=== PATIENT | female | born 1990 | race Hispanic/Latino ===

== ENCOUNTER 2018-06-04 23:08 | Inpatient (IN) | payer MEDICAID, OTHER, SELFPAY ==
[~2018-06-04 23:08] MED LIST: Bupivacaine HCl 0.25%/Epi 0.0005/PF 10 ML VIAL FS ONE
[2018-06-04] MEDS ORDERED: Ondansetron PF 4 MG/2 ML Vial IVP PRN (23:17)
[2018-06-04] MEDS ORDERED: Lidocaine 1% (PF) 30 ML VIAL SC PRN (23:17)
[2018-06-04] MEDS ORDERED: Ibuprofen 800 MG TAB PO PRN (23:17)
[2018-06-04] MEDS ORDERED: Butorphanol Tartrate 1 MG/ML VIAL SLOW IVP PRN (23:17)
[2018-06-04] MEDS ORDERED: HYDROcodone/Acetaminophen 5/325 mg Tablet PO PRN ×2 (23:17)
[2018-06-04] MEDS ORDERED: Promethazine HCl 25 MG/ML VIAL IM PRN (23:17)
[2018-06-04 23:18] VITALS: BMI 28.5
--- NOTE | 2018-06-04 23:22 | PDOC.EVN ---
Event Note - Event Note Event Note: OBGYN Faculty Direct admission to Dr Lopez for PPROM. Ampicillin requested. Dr lopez aware Courtsey orders placed
[2018-06-04] MEDS ORDERED: Ampicillin 2 GM in Sodium Chloride 0.9% 100 ML IVPB SCH (23:30)
[2018-06-04] MEDS: Lactated Ringer's 1,000 ML IV SCH (23:43)
[2018-06-04 23:54] LABS: Hemoglobin 11.9 g/dL (12.0-16.0); Mean Corpuscular HGB CONC 33.8 g/dL (32.0-36.0); Mean Corpuscular Volume 82.9 fL (78.0-98.0); Mean Platelet Volume 8.8 fL (7.4-10.4); Platelet Count 197 thou/uL (130-400); RBC Distribution Width 12.5 % (11.5-14.5); Red Blood Cell (RBC) Count 4.24 mill/uL (4.20-5.40)
[2018-06-05] MEDS ORDERED: Fentanyl 4 mcg/Bup 0.1% Cadd 100 ML ONE
[2018-06-05] MEDS ORDERED: Lidocaine 1.5% w/Epi 1:200K 30 ML VIAL (Epid Use) ONE (00:09)
[2018-06-05 00:34] LABS: Syphilis Antibody Nonreactive (Nonreactive); Syphilis Antibody Index 0.02 S/CO (<1.00 Non-Reactive)
[2018-06-05 00:45] LABS: HBSAg Index 0.12 S/CO (0-0.99); HIV (1/2) Antibody/Antigen Non-Reactive (NonReactive); HIV 1/2 INDEX 0.09 S/CO (<1.00); Hep B Surf Ag Non-Reactive S/CO (NonReactive)
[2018-06-05] MEDS ORDERED: Promethazine HCl 25 MG/ML VIAL IM PRN (00:46)
[2018-06-05] MEDS ORDERED: Eucerin (Mineral Oil/Petrolatum,White) 30 gm Jar TOP PRN (00:46)
[2018-06-05] MEDS ORDERED: Lactated Ringer's 500 ML IV PRN (00:46)
[2018-06-05] MEDS ORDERED: diphenhydrAMINE 50 MG/ML VIAL IVP PRN (00:46)
[2018-06-05] MEDS ORDERED: Acetaminophen 325 MG TAB PO PRN (00:46)
[2018-06-05] MEDS ORDERED: Naloxone HCl 0.4 mg/ml Vial IVP PRN ×2 (00:46)
[2018-06-05] MEDS ORDERED: Ondansetron PF 4 MG/2 ML Vial IVP PRN ×2 (00:46→07:39)
[2018-06-05] MEDS ORDERED: ePHEDrine/0.9% NaCl/PF SYRINGE 50 mg/10 ml SLOW IVP PRN (00:46)
[2018-06-05] MEDS ORDERED: Communication Order-Pharmacy FS SCH (01:00)
[2018-06-05] MEDS ORDERED: Fentanyl 4 mcg/Bupivacaine 0.1% Cassette 100 ML EPIDURAL SCH (01:00)
[2018-06-05] MEDS: Lactated Ringer's 1,000 ML IV SCH (01:30)
[2018-06-05] MEDS ORDERED: Lidocaine 1% (PF) 30 ML VIAL ONE (04:09)
[2018-06-05] MEDS ORDERED: NS / Oxytocin 40 units/1000ml 1,000 ML ONE (04:09)
[2018-06-05] MEDS: NS / Oxytocin 40 units/1000ml 1,000 ML IV PRN ×2 (06:10→07:42)
[2018-06-05] MEDS ORDERED: HYDROcodone/Acetaminophen 5/325 mg Tablet PO PRN (07:39)
[2018-06-05] MEDS ORDERED: Milk Of Magnesia 30 ML UDCUP PO PRN (07:39)
[2018-06-05] MEDS ORDERED: diphenhydrAMINE 25 MG CAP PO PRN (07:39)
[2018-06-05] MEDS ORDERED: Lanolin Ointment 7 GM TUBE TOP PRN (07:39)
[2018-06-05] MEDS ORDERED: NS / Oxytocin 40 units/1000ml 1,000 ML IV SCH (07:39)
[2018-06-05] MEDS ORDERED: Bisacodyl 10 MG SUPP PR PRN (07:39)
[2018-06-05] MEDS: Ferrous Sulfate 325 MG TAB PO SCH ×2 (09:51→14:25)
[2018-06-05] MEDS: HYDROcodone/Acetaminophen 5/325 mg Tablet PO PRN ×2 (10:10→20:31)
[2018-06-05] MEDS: Prenatal Vitamin 1 TAB PO SCH (10:10)
[2018-06-05] MEDS: Docusate Calcium (SURFAK) 240 MG CAP PO SCH ×2 (10:10→21:23)
[2018-06-05] MEDS: Ibuprofen 800 MG TAB PO SCH ×2 (13:29→21:23)
[2018-06-06] MEDS: HYDROcodone/Acetaminophen 5/325 mg Tablet PO PRN ×2 (04:15→11:16)
[2018-06-06] MEDS: Ibuprofen 800 MG TAB PO SCH ×3 (05:44→21:31)
[2018-06-06 05:54] LABS: Hemoglobin 10.7 g/dL (12.0-16.0); Mean Corpuscular HGB CONC 33.1 g/dL (32.0-36.0); Mean Corpuscular Volume 84.5 fL (78.0-98.0); Platelet Count 155 thou/uL (130-400); RBC Distribution Width 12.4 % (11.5-14.5); Red Blood Cell (RBC) Count 3.84 mill/uL (4.20-5.40); White Blood Cell (WBC) Count 10.6 thou/uL (4.8-10.8)
[2018-06-06] MEDS: Ferrous Sulfate 325 MG TAB PO SCH ×2 (09:06→16:57)
[2018-06-06] MEDS: Prenatal Vitamin 1 TAB PO SCH (09:20)
[2018-06-06] MEDS: Docusate Calcium (SURFAK) 240 MG CAP PO SCH ×2 (09:20→21:31)
[2018-06-07] MEDS: HYDROcodone/Acetaminophen 5/325 mg Tablet PO PRN (02:11)
[2018-06-07] MEDS: Ibuprofen 800 MG TAB PO SCH (06:01)
[2018-06-07 08:22] VITALS: BP 93/52; TEMP 98.2
[2018-06-07] MEDS: Prenatal Vitamin 1 TAB PO SCH (09:21)
[2018-06-07] MEDS: Docusate Calcium (SURFAK) 240 MG CAP PO SCH (09:21)
[2018-06-07] MEDS: Ferrous Sulfate 325 MG TAB PO SCH (09:22)
== END 2018-06-07 12:30 | disposition home or self-care (01) | DRG 806 ==
LOC: L&D/OP 23:08 → L&D 23:37 → 3SW 06-05 09:00
PROVIDERS: ADMIT Family Medicine; ATTEND Family Medicine
PROC: 10E0XZZ Delivery of Products of Conception, External Approach (ICD-10-PCS; principal; 2018-06-05)
DX: O42.913 Preterm premature rupture of membranes, unspecified as to length of time between rupture and onset of labor, third trimester (principal); E22.1 Hyperprolactinemia; Z37.0 Single live birth; O99.283 Endocrine, nutritional and metabolic diseases complicating pregnancy, third trimester; Z3A.35 35 weeks gestation of pregnancy
CPT/HCPCS: 36415; 51702; 85027; 86780; 86850; 86900; 86901; 87340; 87389; 88307; 99285; A4353; J0290; J2001; J7050; J7070